=== PATIENT | female | born 1970 | race Hispanic/Latino ===

== ENCOUNTER 2019-01-22 07:05 | Inpatient (IN) | payer SELFPAY ==
[2019-01-22] MEDS ORDERED: Bupivacaine 0.5% Inj(30mL) ONE (07:13)
[2019-01-22 07:20] VITALS: BMI 25.1
[2019-01-22] MEDS ORDERED: Propofol 10 mg/ml Inj (20 ML) ONE ×2 (07:25→11:02)
[2019-01-22] MEDS ORDERED: Midazolam 2 MG/2 ML VIAL ONE (07:26)
[2019-01-22] MEDS ORDERED: ePHEDrine 50 mg/ml Inj ONE (07:26)
[2019-01-22] MEDS ORDERED: Rocuronium 10 mg/ml (5 ml) ONE ×2 (07:27→11:03)
[2019-01-22] MEDS ORDERED: Lidocaine 4% (Laryng-O-Jet) Kit MM ONE (07:27)
[2019-01-22] MEDS ORDERED: Succinylcholine 200 mg/10 ml Inj IV ONE (07:31)
[2019-01-22] MEDS ORDERED: Lactated Ringer's 1,000 ML IV ONE ×4 (07:36→11:30)
[2019-01-22 08:43] LABS: BASO % 0.2 % (0.0-2.0); EOS % 0.2 % (0.0-4.0); HEMOGLOBIN 12.5 g/dL (12.0-16.0); LYMPH # 1.5 K/uL (1.0-4.3); LYMPH % 13.9 % (20.0-40.0); MEAN CELL VOLUME 94.6 fl (81.0-99.0); MEAN CORPUSCULAR HEMOGLOBIN 31.7 pg (27.0-31.0); MEAN CORPUSCULAR HGB CONC 33.4 g/dL (33.0-37.0); MEAN PLATELET VOLUME 8.6 fl (7.2-11.7); MONO # 0.6 K/uL (0.0-0.8); MONO % 5.6 % (0.0-10.0); NEUT # 8.5 K/uL (1.8-7.0); NEUT % 80.1 % (50.0-75.0); NRBC % 0.1 % (0.0-0.0); RBC 3.94 Mil/uL (3.80-5.20); WHITE BLOOD COUNT 10.7 K/uL (4.8-10.8)
[2019-01-22] MEDS ORDERED: Dexamethasone 4 mg/1 ml ONE (09:51)
[2019-01-22] MEDS ORDERED: Neostigmine 1:1000 (1 mg/ml) Inj ONE (10:29)
[2019-01-22] MEDS ORDERED: Droperidol 2.5 mg/ml Inj IVP PRN (11:46)
[2019-01-22] MEDS ORDERED: DiphenhydrAMINE 50 mg/ml Inj IVP PRN ×2 (11:46→14:11)
[2019-01-22] MEDS ORDERED: Acetaminophen IV 1,000 MG in IV SUPPLIES 0 ML IVPB PRN (11:48)
[2019-01-22] MEDS: HYDROmorphone 0.5 mg/0.5 ml ISec IVP PRN ×4 (12:16→13:15)
--- NOTE | 2019-01-22 12:21 | RAD ---
Date of service: 01/22/2019 PROCEDURE: CHEST RADIOGRAPH, 1 VIEW HISTORY: s/p Chest tube COMPARISON: None available. FINDINGS: LUNGS: The lungs are well inflated and clear. PLEURA: No pneumothorax or pleural effusion. Right-sided chest tube terminates in the right apex. CARDIOVASCULAR: The heart is normal in size. No aortic atherosclerotic calcifications present. OSSEOUS STRUCTURES: Within normal limits for the patient's age. VISUALIZED UPPER ABDOMEN: Normal. OTHER FINDINGS: None. IMPRESSION: No acute findings. Right chest tube terminates in the right apex.
[2019-01-22] MEDS: Lidocaine 5% Patch TD SCH (13:45)
[2019-01-22 14:03] LABS: HEMOGLOBIN 12.5 g/dL (12.0-16.0); MEAN CORPUSCULAR HEMOGLOBIN 31.2 pg (27.0-31.0); MEAN CORPUSCULAR HGB CONC 32.9 g/dL (33.0-37.0); RBC 3.99 Mil/uL (3.80-5.20); RED CELL DISTRIBUTION WIDTH 13.1 % (11.5-14.5); WHITE BLOOD COUNT 18.1 K/uL (4.8-10.8)
[2019-01-22] MEDS ORDERED: Naloxone 0.4 mg/ml Inj (Adult) IVP PRN (14:11)
[2019-01-22 14:22] LABS: BLOOD UREA NITROGEN 13 mg/dl (7-17); CALCIUM 8.7 mg/dL (8.4-10.2); GFR NON-AFRICAN AMERICAN > 60
[2019-01-22] MEDS ORDERED: Potassium Chloride 20 mEq/15 ml LIQ UD PO ONE (15:55)
--- NOTE | 2019-01-22 18:17 | RAD ---
Date of service: 01/22/2019 PROCEDURE: CHEST RADIOGRAPH, 1 VIEW HISTORY: interval CXR s/p Chest TUbe COMPARISON: 01/22/2019 at 11:54 a.m. FINDINGS: LUNGS: The lungs are well inflated and clear. PLEURA: No pneumothorax or pleural effusion. There is stable position of the right chest tube terminating in the apex. CARDIOVASCULAR: The heart is normal in size. No aortic atherosclerotic calcifications present. OSSEOUS STRUCTURES: Within normal limits for the patient's age. VISUALIZED UPPER ABDOMEN: Normal. OTHER FINDINGS: None. IMPRESSION: Stable position of right chest tube terminating in the apex. No acute findings. No significant interval change.
[2019-01-22 18:55] LABS: HEMOGLOBIN 12.4 g/dL (12.0-16.0); MEAN CELL VOLUME 93.3 fl (81.0-99.0); MEAN CORPUSCULAR HEMOGLOBIN 31.3 pg (27.0-31.0); MEAN CORPUSCULAR HGB CONC 33.6 g/dL (33.0-37.0); RBC 3.94 Mil/uL (3.80-5.20); RED CELL DISTRIBUTION WIDTH 13.1 % (11.5-14.5)
--- NOTE | 2019-01-22 22:48 | CP.PCM.PN ---
Subjective - Date & Time of Evaluation Date of Evaluation: 01/22/19 Time of Evaluation: 22:43 - Subjective Subjective: Surgery Progress note Patient seen and examined at bedside. pmhx significant for endometriosis s/p multiple abdominal surgeries, hysterectomy, VATS, Currently s/p Robotic resection of endometriosis, diaphragm resection w/ primary repair, chest tube thoracostomy POD 0. Currently GCS 15, moving all 4 extremities, AAOx3. Pain currently controlled with Dilaudid [employer], IV Tylenol, and lidoderm patch. Remains normotensive, not on pressorts, saturating 99% on room air. Chest tube to suction, no air leak detected, minimal output. CXR shows chest tube to apex, no pneumothorax. Tolerating regular diet. Denies nausea, vomiting. Cavazos in place making urine. Objective - Vital Signs/Intake and Output Vital Signs (last 24 hours): Temp Pulse Resp BP Pulse Ox 98.5 F 81 16 99/51 L 96 01/22/19 20:00 01/22/19 22:00 01/22/19 22:00 01/22/19 22:00 01/22/19 22:00 Intake and Output: 01/22/19 01/23/19 18:59 06:59 Intake Total 5100 560 Output Total 2565 Balance 2535 560 - Medications Medications: Current Medications Diphenhydramine HCl (Benadryl) 25 mg IVP Q6 PRN PRN Reason: Itching / Pruritus Enoxaparin Sodium (Lovenox) 40 mg SC DAILY AVTAR; Protocol Hydromorphone HCl (Dilaudid 0.2 Mg/Ml Neurosurgical Nurse Practitioner) 0 mg IV PRN PRN; Protocol PRN Reason: Pain, moderate (4-7) Last Admin: 01/22/19 14:45 Dose: 6 mg Hydromorphone HCl (Dilaudid) 0.5 mg IVP Q4H PRN PRN Reason: Pain, severe (8-10) Lactated Ringer's (Lactated Ringer's) 1,000 mls @ 125 mls/hr IV .Q8H AVTAR Acetaminophen 1,000 mg/ IV (SUPPLIES) 100 mls @ 400 mls/hr IVPB Q6H PRN; Protocol PRN Reason: Pain, moderate (4-7) Stop: 01/24/19 11:49 Last Admin: 01/22/19 12:30 Dose: 100 mls Ibuprofen (Motrin Tab) 600 mg PO Q6 PRN PRN Reason: Pain, moderate (4-7) Lidocaine (Lidoderm) 1 ea TD DAILY AVTAR Last Admin: 01/22/19 13:45 Dose: 1 ea Naloxone HCl (Narcan) 0.1 mg IVP Q2M PRN PRN Reason: Sedation Ondansetron HCl (Zofran Inj) 4 mg IVP Q4 PRN PRN Reason: Nausea/Vomiting - Labs Labs: 01/22/19 18:30 01/22/19 13:50 - Constitutional Appears: Non-toxic, No Acute Distress - Head Exam Head Exam: ATRAUMATIC - Eye Exam Eye Exam: EOMI. absent: Scleral icterus - ENT Exam ENT Exam: Mucous Membranes Moist - Respiratory Exam Respiratory Exam: absent: Accessory Muscle Use, Respiratory Distress Additional comments: Right chest tube in place, no air leak detected - Cardiovascular Exam Cardiovascular Exam: REGULAR RHYTHM. absent: Bradycardia, Tachycardia - GI/Abdominal Exam GI & Abdominal Exam: Soft, Tenderness (appropriately tender around incisions). absent: Distended, Firm, Guarding, Rigid - Exam Additional comments: Cavazos in place, making adequate urine - Extremities Exam Extremities Exam: absent: Calf Tenderness - Neurological Exam Neurological Exam: Alert, Awake, Oriented x3 - Psychiatric Exam Psychiatric exam: Normal Affect - Skin Skin Exam: Intact, Warm Assessment and Plan - Assessment and Plan (Free Text) Assessment: 48F s/p Robotic resection of endometriosis, diaphragm resection w/ primary repair, chest tube thoracostomy POD 0 Plan: - pain control PRN - Maintain MAP > 65 - O2 saturation > 92% - Chest tube to suction - AM CXR - repeat AM labs - diet as tolerated - chemical DVT ppx in AM - oob as tolerated - discussed w/ Surgical attending PGY2
[2019-01-23] MEDS: Lactated Ringer's 1,000 ML IV SCH ×3 (03:55→21:47)
[2019-01-23 05:31] LABS: BASO % 0.1 % (0.0-2.0); HEMOGLOBIN 10.9 g/dL (12.0-16.0); MEAN CELL VOLUME 93.6 fl (81.0-99.0); MEAN CORPUSCULAR HEMOGLOBIN 31.3 pg (27.0-31.0); MEAN CORPUSCULAR HGB CONC 33.5 g/dL (33.0-37.0); MEAN PLATELET VOLUME 8.9 fl (7.2-11.7); MONO # 1.1 K/uL (0.0-0.8); MONO % 5.5 % (0.0-10.0); NEUT # 18.5 K/uL (1.8-7.0); NEUT % 89.4 % (50.0-75.0); PLATELET COUNT 213 K/uL (130-400); RBC 3.49 Mil/uL (3.80-5.20); RED CELL DISTRIBUTION WIDTH 13.4 % (11.5-14.5)
[2019-01-23 05:40] LABS: WHITE BLOOD COUNT 20.7 K/uL (4.8-10.8)
[2019-01-23 05:52] LABS: BLOOD UREA NITROGEN 11 mg/dl (7-17); CALCIUM 8.6 mg/dL (8.4-10.2); GFR NON-AFRICAN AMERICAN > 60
[2019-01-23 08:31] LABS: LYMPHOCYTE 6 % (20-50); MONOCYTE 7 % (0-10); NEUTROPHIL 87 % (42-75); TOTAL CELLS COUNTED 100
[2019-01-23 08:32] LABS: HYPOCHROMIC SLIGHT; LARGE PLATELETS PRESENT; PLATELET ESTIMATE NORMAL (NORMAL)
[2019-01-23] MEDS: Enoxaparin 40 mg Syringe SC SCH (08:38)
--- NOTE | 2019-01-23 09:03 | CP.PCM.PN ---
Subjective - Date & Time of Evaluation Date of Evaluation: 01/23/19 Time of Evaluation: 08:57 - Subjective Subjective: Surgery Progress Note Patient seen and examined at bedside. GCS 15, AAOx3, non-focal. On dialudid COMBINATION WORKER and RTC tylenol. Chest tube put on waterseal this AM after CXR was stable, no pneumothorax. On regular diet. Had some complaints of throat pain that was resolved with clear liquids. Made adquate clear urine. Plan to pull akins today. OOB as tolerated. Start chemical DVT ppx Objective - Vital Signs/Intake and Output Vital Signs (last 24 hours): Temp Pulse Resp BP Pulse Ox 98.5 F 61 13 92/49 L 97 01/23/19 04:00 01/23/19 04:00 01/23/19 04:00 01/23/19 04:00 01/23/19 04:00 Intake and Output: 01/23/19 01/23/19 06:59 18:59 Intake Total 1560 Output Total 1675 Balance -115 - Medications Medications: Current Medications Diphenhydramine HCl (Benadryl) 25 mg IVP Q6 PRN PRN Reason: Itching / Pruritus Enoxaparin Sodium (Lovenox) 40 mg SC DAILY AVTAR; Protocol Last Admin: 01/23/19 08:38 Dose: 40 mg Lactated Ringer's (Lactated Ringer's) 1,000 mls @ 125 mls/hr IV .Q8H AVTAR Last Admin: 01/23/19 03:55 Dose: 125 mls/hr Acetaminophen 1,000 mg/ IV (SUPPLIES) 100 mls @ 400 mls/hr IVPB Q6H PRN; Protocol PRN Reason: Pain, moderate (4-7) Stop: 01/24/19 11:49 Last Admin: 01/22/19 12:30 Dose: 100 mls Ibuprofen (Motrin Tab) 600 mg PO Q6 PRN PRN Reason: Pain, moderate (4-7) Ketorolac Tromethamine (Toradol) 30 mg IVP Q6 PRN PRN Reason: Pain, severe (8-10) Last Admin: 01/23/19 08:37 Dose: 30 mg Lidocaine (Lidoderm) 1 ea TD DAILY AVTAR Last Admin: 01/22/19 13:45 Dose: 1 ea Naloxone HCl (Narcan) 0.1 mg IVP Q2M PRN PRN Reason: Sedation Ondansetron HCl (Zofran Inj) 4 mg IVP Q4 PRN PRN Reason: Nausea/Vomiting - Labs Labs: 01/23/19 05:10 01/23/19 05:10 - Constitutional Appears: Non-toxic, No Acute Distress - Head Exam Head Exam: ATRAUMATIC - Eye Exam Eye Exam: EOMI. absent: Scleral icterus - ENT Exam ENT Exam: Mucous Membranes Moist - Respiratory Exam Respiratory Exam: NORMAL BREATHING PATTERN. absent: Accessory Muscle Use, Respiratory Distress Additional comments: Chest tube in place, no air leak detected. To suction - Cardiovascular Exam Cardiovascular Exam: REGULAR RHYTHM. absent: Bradycardia, Tachycardia - GI/Abdominal Exam GI & Abdominal Exam: Soft, Tenderness. absent: Distended, Firm, Guarding, Rigid Additional comments: Tender around incision sites - Extremities Exam Extremities Exam: absent: Calf Tenderness - Neurological Exam Neurological Exam: Alert, Awake, Oriented x3 - Psychiatric Exam Psychiatric exam: Normal Affect - Skin Skin Exam: Intact, Warm Assessment and Plan - Assessment and Plan (Free Text) Assessment: 48F s/p Robotic resection of endometriosis, diaphragm resection w/ primary repair, chest tube thoracostomy POD1 Plan: - pain control PRN; de-escalate of dilaudid COMBINATION WORKER - Maintain MAP > 65 - O2 saturation > 92% - Chest tube to water seal; plan for chest tube removal later today. - diet as tolerated - chemical DVT ppx in AM - oob as tolerated - discussed w/ Surgical attending PGY2
--- NOTE | 2019-01-23 10:55 | RAD ---
Date of service: 01/23/2019 HISTORY: Chest tube to water seal COMPARISON: Portable chest 01/22/2019. TECHNIQUE: 1 view obtained. FINDINGS: LUNGS: No active pulmonary disease. PLEURA: No significant pleural effusion identified, no pneumothorax apparent. Right chest tube unchanged in position. CARDIOVASCULAR: No aortic atherosclerotic calcification present. Normal cardiac size. No pulmonary vascular congestion. OSSEOUS STRUCTURES: No significant abnormalities. VISUALIZED UPPER ABDOMEN: Normal. OTHER FINDINGS: None. IMPRESSION: No interval cardiopulmonary disease appreciated. Right chest tube unchanged in position.
--- NOTE | 2019-01-23 11:12 | RAD ---
Date of service: 01/23/2019 HISTORY: f/u R chest Tube COMPARISON: Portable chest 01/22/2019. TECHNIQUE: 1 view obtained. FINDINGS: LUNGS: No interval change in right chest tube deployment. No active pulmonary disease. PLEURA: No significant pleural effusion identified, no pneumothorax apparent. CARDIOVASCULAR: No aortic atherosclerotic calcification present. Normal cardiac size. No pulmonary vascular congestion. OSSEOUS STRUCTURES: No significant abnormalities. VISUALIZED UPPER ABDOMEN: Normal. OTHER FINDINGS: None. IMPRESSION: No interval acute cardiopulmonary disease appreciated. Right chest tube unchanged in position.
[2019-01-23 14:19] LABS: HEMOGLOBIN 10.6 g/dL (12.0-16.0); MEAN CELL VOLUME 94.5 fl (81.0-99.0); MEAN CORPUSCULAR HEMOGLOBIN 31.5 pg (27.0-31.0); MEAN CORPUSCULAR HGB CONC 33.3 g/dL (33.0-37.0); RBC 3.36 Mil/uL (3.80-5.20); WHITE BLOOD COUNT 17.2 K/uL (4.8-10.8)
[2019-01-23] MEDS: Lidocaine 5% Patch TD SCH (15:34)
--- NOTE | 2019-01-24 03:49 | CP.PCM.PN ---
Subjective - Date & Time of Evaluation Date of Evaluation: 01/24/19 Time of Evaluation: 03:44 - Subjective Subjective: SURGERY NOTE FOR DR. LEWIS 48F seen and examined at bedside. Patient doing well, able to ambulate comfortably, denies shortness of breath. Able to use incentive spirometer. Tolerating regular diet. Objective - Vital Signs/Intake and Output Vital Signs (last 24 hours): Temp Pulse Resp BP Pulse Ox 99.3 F 60 22 106/61 97 01/24/19 00:00 01/24/19 00:00 01/24/19 00:00 01/24/19 00:00 01/24/19 00:00 Intake and Output: 01/23/19 01/24/19 18:59 06:59 Intake Total 1075 870 Output Total 350 1270 Balance 725 -400 - Medications Medications: Current Medications Diphenhydramine HCl (Benadryl) 25 mg IVP Q6 PRN PRN Reason: Itching / Pruritus Enoxaparin Sodium (Lovenox) 40 mg SC DAILY AVTAR; Protocol Last Admin: 01/23/19 08:38 Dose: 40 mg Lactated Ringer's (Lactated Ringer's) 1,000 mls @ 125 mls/hr IV .Q8H AVTAR Last Admin: 01/23/19 21:47 Dose: 125 mls/hr Acetaminophen 1,000 mg/ IV (SUPPLIES) 100 mls @ 400 mls/hr IVPB Q6H PRN; Protocol PRN Reason: Pain, moderate (4-7) Stop: 01/24/19 11:49 Last Admin: 01/22/19 12:30 Dose: 100 mls Ibuprofen (Motrin Tab) 600 mg PO Q6 PRN PRN Reason: Pain, moderate (4-7) Last Admin: 01/23/19 21:41 Dose: 600 mg Ketorolac Tromethamine (Toradol) 30 mg IVP Q6 PRN PRN Reason: Pain, severe (8-10) Last Admin: 01/23/19 23:26 Dose: 30 mg Lidocaine (Lidoderm) 1 ea TD DAILY AVTAR Last Admin: 01/23/19 15:34 Dose: 1 ea Naloxone HCl (Narcan) 0.1 mg IVP Q2M PRN PRN Reason: Sedation Ondansetron HCl (Zofran Inj) 4 mg IVP Q4 PRN PRN Reason: Nausea/Vomiting - Labs Labs: 01/23/19 14:00 01/23/19 05:10 - Constitutional Appears: Non-toxic, No Acute Distress - Respiratory Exam Respiratory Exam: NORMAL BREATHING PATTERN - Cardiovascular Exam Cardiovascular Exam: REGULAR RHYTHM, +S1, +S2 - Skin Skin Exam: Dry, Intact, Normal Color, Warm Assessment and Plan - Assessment and Plan (Free Text) Assessment: 48F s/p Robotic resection of endometriosis, diaphragm resection w/ primary repair, chest tube thoracostomy POD#2 Plan: - pain control PRN - Maintain MAP > 65 - O2 saturation > 92% - diet as tolerated - oob as tolerated - Chest tube DC'd yesterday, AM chest x-ray - Further recs discuss w/ Surgical attending Oliver Almonte, PGY3
[2019-01-24 06:18] LABS: HEMOGLOBIN 9.9 g/dL (12.0-16.0); MEAN CELL VOLUME 94.6 fl (81.0-99.0); MEAN CORPUSCULAR HEMOGLOBIN 32.1 pg (27.0-31.0); MEAN CORPUSCULAR HGB CONC 33.9 g/dL (33.0-37.0); RBC 3.1 Mil/uL (3.80-5.20); RED CELL DISTRIBUTION WIDTH 13.5 % (11.5-14.5); WHITE BLOOD COUNT 9.7 K/uL (4.8-10.8)
[2019-01-24 06:32] LABS: BLOOD UREA NITROGEN 17 mg/dl (7-17); CALCIUM 8.4 mg/dL (8.4-10.2); GFR NON-AFRICAN AMERICAN > 60
[2019-01-24] MEDS: Lactated Ringer's 1,000 ML IV SCH (07:37)
--- NOTE | 2019-01-24 08:21 | RAD ---
Date of service: 01/24/2019 HISTORY: s/p Chest tube DC follow up COMPARISON: No prior. TECHNIQUE: 1 view obtained. FINDINGS: LUNGS: Right chest tube now removed. Trace right pleural effusion evident blunting right costophrenic sulcus with no pneumothorax identified bilaterally. No left pleural effusion. No infiltrates bilaterally. PLEURA: As above. CARDIOVASCULAR: No aortic atherosclerotic calcification present. Normal cardiac size. No pulmonary vascular congestion. OSSEOUS STRUCTURES: No significant abnormalities. VISUALIZED UPPER ABDOMEN: Normal. OTHER FINDINGS: None. IMPRESSION: No pneumothorax status post interval removal of right chest tube. Trace right pleural effusion present.
[2019-01-24] MEDS: Lidocaine 5% Patch TD SCH (09:47)
[2019-01-24] MEDS: Enoxaparin 40 mg Syringe SC SCH (09:47)
[2019-01-25] MEDS: Enoxaparin 40 mg Syringe SC SCH (09:00)
[2019-01-25] MEDS: Lidocaine 5% Patch TD SCH (09:05)
[2019-01-25 09:11] VITALS: O2SAT 98
--- NOTE | 2019-01-25 13:00 | CP.PCM.PN ---
Subjective - Date & Time of Evaluation Date of Evaluation: 01/25/19 Time of Evaluation: 13:05 - Subjective Subjective: SURGERY NOTE FOR DR. LEWIS 48F seen and examined at bedside. Patient doing well, able to ambulate comfortably, denies shortness of breath. Able to use incentive spirometer. Tolerating regular diet. Objective - Vital Signs/Intake and Output Vital Signs (last 24 hours): Temp Pulse Resp BP Pulse Ox 99.4 F 62 20 113/75 98 01/25/19 08:20 01/25/19 08:20 01/25/19 08:20 01/25/19 08:20 01/25/19 08:20 - Medications Medications: Current Medications Diphenhydramine HCl (Benadryl) 25 mg IVP Q6 PRN PRN Reason: Itching / Pruritus Enoxaparin Sodium (Lovenox) 40 mg SC DAILY AVTAR; Protocol Last Admin: 01/25/19 09:00 Dose: Not Given Ibuprofen (Motrin Tab) 600 mg PO Q6 PRN PRN Reason: Pain, moderate (4-7) Last Admin: 01/25/19 08:06 Dose: 600 mg Ketorolac Tromethamine (Toradol) 30 mg IVP Q6 PRN PRN Reason: Pain, severe (8-10) Last Admin: 01/25/19 12:54 Dose: 30 mg Lidocaine (Lidoderm) 1 ea TD DAILY AVTAR Last Admin: 01/24/19 09:47 Dose: 1 ea Naloxone HCl (Narcan) 0.1 mg IVP Q2M PRN PRN Reason: Sedation Ondansetron HCl (Zofran Inj) 4 mg IVP Q4 PRN PRN Reason: Nausea/Vomiting - Labs Labs: 01/24/19 04:30 01/24/19 04:30 - Additional Findings Additional findings: - Constitutional Appears: Non-toxic, No Acute Distress - Respiratory Exam Respiratory Exam: NORMAL BREATHING PATTERN - Cardiovascular Exam Cardiovascular Exam: REGULAR RHYTHM, +S1, +S2 - Skin Skin Exam: Dry, Intact, Normal Color, Warm Assessment and Plan - Assessment and Plan (Free Text) Assessment: 48F s/p Robotic resection of endometriosis, diaphragm resection w/ primary repair, chest tube thoracostomy POD#3 Plan: - pain control PRN - Maintain MAP > 65 - O2 saturation > 92% - diet as tolerated - oob as tolerated - Further recs discuss with attending Marcellus Jenkins PGY2
[2019-01-25 16:14] VITALS: BP 108/75; PULSE 63; RESP 18; TEMP 98.8
--- NOTE | 2019-01-30 07:44 | OP ---
PROCEDURE DATE: 01/22/2019 SURGEON: Yaya Akins MD WOUND CARE PHYSICIAN: Devika Rosas MD ANESTHESIOLOGIST: Trixie Joaquin MD TYPE OF ANESTHESIA: General endotracheal. PREOPERATIVE DIAGNOSES: 1. History of pelvic endometriosis. Stage 4 POSTOPERATIVE DIAGNOSES: 1. History of pelvic endometriosis. Stage 4 Left Ovarian endo PROCEDURES PERFORMED: 1. Exam under anesthesia. 2. Video assisted hysteroscopy. 3. Cystoscopy. 4. Bilateral ureteral catheterization and injection of IC-Green dye. 5. Robotic da Angle operative laparoscopy. 6. Treatment of endometriosis. 7. Excision of endometriosis. COMPLICATIONS: None. SAMPLES SENT: 1. Left periureteral endometriosis. 2. Left perirectal endometriosis 3. Left Ovarian and tubal endometriosus 4. Right Diaphragmatic nodule, #1 5. Right Diaphragmatic nodule, #2 6. Right Diaphragmatic nodule, #3 INDICATION FOR THE PROCEDURE AND CONSENT: The patient had a long history of pelvic pain, dysmenorrhea, dyspareunia, abdominal pain, and bladder pain. The patient had been thoroughly evaluated and counseled regarding the pros and cons of the procedure, the reasonable alternatives, and possible complications. She understood and accepted the risks involved. Literature was provided to the patient. The patient was understanding and given her history and per surgical exam, she was at high risk in an average patient. She accepted all the risks involved, and all the questions had been answered to her satisfaction. FINDINGS OF SURGERY: Genitalia: Normal external genitalia, cervix without lesion and polyps. Hysteroscopy: Hysteroscopy shows a clear uterine cavity with no polyps or masses noticed. Cystoscopy: The cystoscopy was performed to rule out endometriosis and also any interstitial cystitis and also injury. The bladder was normal with no evidence of stone, trigonitis, or cystitis. A positive jet flow was identified in both ureters. Laparoscopy: The upper abdomen appeared to be normal. Gallbladder was normal. Liver edges appeared to be normal. Ascending colon and transverse were normal. There was evidence of adhesions, fibrosis, and endometriosis of the rectovaginal and pelvic sidewalls. The appendix appeared to be . Both fallopian tubes appeared to be patent, although there was evidence of inflammation on the serosal surface of both fallopian tubes, and there was slight conglutination of both fimbriated ends although they both appeared to be functional. There was also evidence of mild hydroureters. DESCRIPTION OF THE PROCEDURE: Initiation of the case: After adequate anesthesia was obtained, the patient was placed in the dorsal lithotomy position, and with extreme care, placement of the patient with hyperextension and hyperflexing of the hips. At this point, the patient was prepped and draped. The surgeon was gowned and gloved. A timeout was taken according to the hospital procedure and the procedure was started. At this point, we performed cystoscopy, bilateral ureteral catheterization. A cystoscope was inserted into the bladder under direct visualization and the bladder was visualized. The bladder was free of lesions and tumors. There was no evidence of interstitial cystitis, and there was only mild amount of trigonitis. At this point, both ureters were identified and appeared to be in their normal anatomical position. At this point, utilizing an open 5-[place]er open-ended catheter, the left ureter was catheterized all the way to the distal ureter, and 5 mL of IC-Green was injected into this ureter. Similarly, the contralateral ureter was catheterized all the way to the distal ureter, and 5 mL of IC-Green was injected into the distal ureter. At this point, the stents were removed, and the cystoscope was removed, and the 16-[place]er Cavazos was inserted into the bladder. At this point, we proceeded with a hysteroscopy. A speculum was placed into vagina, and the anterior lip of the cervix was grasped. The cervix was dilated, and a hysteroscope was inserted into the cavity. The cavity appeared to be of normal size with no evidence of polyps, cysts, adenomyosis, or fibroids. At this point, we proceeded with placement of a trocar and docking of the da Angle Xi robot. The surgeon was re-gowned and gloved, and open laparoscopy was performed by making incision in the umbilicus and the fascia was incised. The peritoneum was entered in a blunt fashion, and the cannula was inserted under direct visualization. The abdomen was insufflated, and under direct visualization, three additional ports were inserted in the left upper quadrant, left mid quadrant, and right upper quadrant. At this point, the da Angle Xi robot was brought into the field and docked, and the instruments were inserted under direct visualization. All this with extreme care not to injure the bowel or another area. As per dictation, the upper abdomen appeared to be normal with no evidence of any lesions. At this point, we proceeded with a left ureterolysis. The ureter appeared to be dilated and was clearly identified utilizing IC-Green fluorescent technology. Anesthesia was made in the peritoneum at the top of the pelvic brim, and the incision was then carried down all the way opening the peritoneum all the way down from the pelvic brim, all the way down to the ovarian fossa, extending the incision below the ovary. It was a progressive dissection where the ureter was progressively lateralized and peritoneum was medialized, thus freeing the ureter all the way down to the cross of the uterine vessels. After this was done, the ureter was freed and lateralized, and a larger peritoneum which had been opened, was excised, and sent to pathology. At this point, with the aid of very slow process, I was able to elevate the ovary and proceed with ovariolysis. At this point, we proceeded with a left ovariolysis. The left ovary was adherent to the posterior aspect of the uterus. It was gently dissected in a step by step way. It was peeled off, the ovarian fossa, andan area of extensive fibrosis and endometriosis was exposed. At this point, we proceeded with treatment of endometriosis and excision of endometriosis. On the left hand side, fibrosis, especially in the left ovarian fossa was excised. In a very progressive step by step fashion, we dissected off fibrosis containing endometriosis and freed up the whole area. The ureters which had been lateralized. Areas of fibrosis and endometriosis were also identified in the posterior cul-de-sac and in the rectovaginal space which was also affected with endometriosis and fibrosis. At this point, we proceeded with the excision of perirectal endometriosis. The rectovaginal area had significant fibrosis and additional endometriosis was dissected from the posterior aspect of the uterus, and the rectovaginal space was entered at the level of the peritoneal reflection. All this done making sure that no damage to the rectum was performed. At this point, endometriosis was also excised from the right uterosacral area which also was affected by fibrosis and endometriosis. At this point, it was checked for hemostasis and appeared to be excellent. Both fallopian tubes were in good condition and patent. At this point we proceeded with destruction of inflammatory areas utilizing the j-plasma energy device. At this point the console was handed over to Dr. Rosas from General surgery who proceeded with Excision of diaphragm endometriosis with complex repair procedure. He will dictate that separately. After he was done we checked for hemostasis and organ integrity and all was normal. At this point, the da Angle Xi robot was removed. The abdomen was desufflated, and the incisions were closed in layers with 0 PDS for the fascia and 4-0 Monocryl for the skin. At the end of the procedure, all tips and instrument counts were correct. The patient tolerated the procedure well and was taken to the recovery room in excellent condition. Mable SEWELL, Yaya QUAN
--- NOTE | 2019-02-24 13:39 | OP ---
OPERATIVE REPORT -Operative Report Date of Procedure: 01/22/2019 Surgeon: David Rosas MD Mental Health Tech: Yaya Akins MD Anesthesiologist: Trixie Joaquin MD Anesthesia: General Endo Pre-op Diagnosis: Endometriosis of the diaphragm Post-op Diagnosis: same Procedure/Operation Description: Excision of diaphragm endometriosis with complex repair Brief History: This 48 year old woman was already brought to the operating room by Dr. Akins when he requested an intraoperative surgical consultation for diaphragm involvement with endometriosis. Description of the Procedure: The robotic consult was then appropriately placed and the lesion in question was excised using gentle traction and dissection with letter cautery. The first lesion was incised circumferentially and relieved from the diaphragm using the above technique. This lesion was separately marked and sent to pathology as a separate specimen. The second lesion was then desiccated with ultra cautery. And the third lesion was excised in a similar manner en bloc, properly marked and sent to pathology as separate specimen. Hemostasis was deemed adequate at this point. The operation was then turned over to Dr. senior (separate dictation Dr. Akins). Estimated Blood Loss:_15cc Complications: none Specimen: appendix Discharge & Condition: stable MTDD
== END 2019-01-25 16:00 | disposition home or self-care (01) | DRG 742 ==
LOC: H.OPSURG 07:05 → H.ICU/CCU 11:54 → H.PEDS 01-24 12:20
PROVIDERS: ADMIT Obstetrics & Gynecology Reproductive Endocrinology; ATTEND Obstetrics & Gynecology Reproductive Endocrinology
PROC: 0BBT4ZZ Excision of Diaphragm, Percutaneous Endoscopic Approach (ICD-10-PCS; 2019-01-22)
PROC: 0DBP4ZZ Excision of Rectum, Percutaneous Endoscopic Approach (ICD-10-PCS; 2019-01-22)
PROC: 0T788DZ Dilation of Bilateral Ureters with Intraluminal Device, Via Natural or Artificial Opening Endoscopic (ICD-10-PCS; 2019-01-22)
PROC: 0T9B80Z Drainage of Bladder with Drainage Device, Via Natural or Artificial Opening Endoscopic (ICD-10-PCS; 2019-01-22)
PROC: 8E0W4CZ Robotic Assisted Procedure of Trunk Region, Percutaneous Endoscopic Approach (ICD-10-PCS; 2019-01-22)
PROC: 0UB14ZZ Excision of Left Ovary, Percutaneous Endoscopic Approach (ICD-10-PCS; principal; 2019-01-22 08:30)
PROC: 0DBW4ZZ Excision of Peritoneum, Percutaneous Endoscopic Approach (ICD-10-PCS; 2019-01-22 08:30)
DX: N80.0 Endometriosis of uterus (principal); N13.4 Hydroureter; N83.02 Follicular cyst of left ovary; N80.1 Endometriosis of ovary; N80.3 Endometriosis of pelvic peritoneum; N80.8 Other endometriosis; J98.6 Disorders of diaphragm; N73.6 Female pelvic peritoneal adhesions (postinfective)